=== PATIENT | female | born 1970 | race Caucasian/White ===

== ENCOUNTER → 2018-10-06 12:01 | Outpatient (CLI) | payer OTHER, SELFPAY ==
--- NOTE | 2018-10-06 12:10 | DI.RAD.S_ITS ---
PROCEDURE: XR LUMBAR SPINE MIN 4V INDICATIONS: Back pain TECHNIQUE: 5 views of the lumbar spine were acquired. COMPARISON: Lumbar spine dated 03/04/14. FINDINGS: Bones: No fracture or focal osseous destruction. Straightening of the normal lordotic curvature. Multilevel degenerative endplate sclerosis and spurring. Diffuse facet arthropathy. Mild L5-S1 disc degeneration and height loss otherwise the remaining disc spaces appear grossly preserved. . Soft tissues: Overlying bowel gas pattern is normal. No suspicious soft tissue calcifications. Oblique images: No pars defects. IMPRESSION: Mild L5-S1 disc degeneration which appears grossly unchanged since prior study. Diffuse facet arthropathy. Dictated by: Lucas New M.D. on 10/06/2018 at 16:37 Approved by: Lucas New M.D. on 10/06/2018 at 16:40
== END ==
PROVIDERS: PCP Family Medicine; Visit Provider Physical Medicine & Rehabilitation
DX: M54.9 Dorsalgia, unspecified (principal); M51.37 Other intervertebral disc degeneration, lumbosacral region; M47.817 Spondylosis without myelopathy or radiculopathy, lumbosacral region; M53.3 Sacrococcygeal disorders, not elsewhere classified
CPT/HCPCS: 72110

== ENCOUNTER → 2018-12-01 17:32 | Outpatient (CLI) | payer OTHER, SELFPAY ==
--- NOTE | 2018-12-01 17:36 | DI.MRI.S_ITS ---
PROCEDURE: MR LUMBAR SPINE WO CON INDICATIONS: Low back, sacrum pain TECHNIQUE: Noncontrast sagittal T1 spin echo and T2 fast echo, sagittal STIR, axial T1 and T2 fast spin echo through the lumbar spine. In cases with scoliosis, additional coronal T2 fast spin echo may be performed. COMPARISON: MR, LUMBAR SPINE W/O CONTRAST, 09/29/2010, 8:56. [facility], CR, XR LUMBAR SPINE MIN 4V, 10/06/2018, 12:19. FINDINGS: Image quality: Excellent. Alignment and Curvature: There is normal bony alignment. Bone Marrow: Reactive endplate change is noted adjacent to the L5-S1 disc. No acute vertebral body compression fractures. Spinal Cord: Conus medullaris terminates at the L1 level. Visualized cord demonstrates normal signal and size. Paraspinous Soft Tissues: No paravertebral masses. L1-L2: Normal appearance. L2-L3: Normal appearance. L3-L4: Normal appearance. L4-L5: Loss of this signal. Mild, diffuse disc bulge. Mild bilateral facet hypertrophy. Mild ligamentum flavum hypertrophy. Moderate narrowing of the central canal. Moderate bilateral neural foraminal narrowing. No neural impingement. There is a focal high intensity zone in the left foraminal annulus compatible with a fissures. L5-S1: Loss of disc signal and slight loss of disc height. Mild, diffuse disc bulge. Mild bilateral facet hypertrophy. Mild narrowing of the central canal. Severe right and moderate left neural foraminal narrowing with compression of the exiting right L5 nerve root. Focal high intensity zone is noted in the annulus compatible with fissures. No sacral fractures identified. Marrow signal of the sacrum is normal. Sacroiliac joints are within normal limits. IMPRESSION: 1. L4-L5 and L5-S1 degenerative disease 2. L4-L5 and L5-S1 facet arthropathy. 3. Moderate L4-L5 central canal narrowing. 4. Severe right and moderate left L5-S1 neural femoral narrowing. Moderate bilateral L4-L5 neural femoral narrowing. 5. Compression of the exiting right L5 nerve root secondary to neural foraminal narrowing. Please correlate with clinical data. 6. L4-L5 and L5-S1 disc annulus fissures. Dictated by: Meena Hobson MD, PhD on 12/02/2018 at 11:37 Approved by: Meena Hobson MD, PhD on 12/02/2018 at 11:41
== END ==
PROVIDERS: PCP Family Medicine; Visit Provider Physical Medicine & Rehabilitation
DX: M47.817 Spondylosis without myelopathy or radiculopathy, lumbosacral region (principal); M51.27 Other intervertebral disc displacement, lumbosacral region; M51.36 Other intervertebral disc degeneration, lumbar region; M48.061 Spinal stenosis, lumbar region without neurogenic claudication; M47.816 Spondylosis without myelopathy or radiculopathy, lumbar region; Q05.7 Lumbar spina bifida without hydrocephalus
CPT/HCPCS: 72148

== ENCOUNTER 2019-01-15 08:02 | Outpatient (CLI) | payer OTHER, SELFPAY ==
[2019-01-15] VITALS (8 sets, daily range): BP systolic 105–135; BP diastolic 55–118; PULSE 64–74; RESP 16–18; TEMP 36.1; O2SAT 96–100
--- NOTE | 2019-01-15 08:05 | DI.RAD.S_ITS ---
PROCEDURE: PAIN SI JOINT INJECTION INDICATIONS: SACRAL SPONDYLOSIS FINDINGS: Fluoroscopic spot filming was performed to verify placement of spinal needles at the right sacroiliac joint level(s), as labeled on the films. Appropriate location(s) of the needle tip(s) was confirmed by injection of iodinated contrast. Dictated by: Lucas New M.D. on 01/15/2019 at 10:37 Approved by: Lucas New M.D. on 01/15/2019 at 10:38
[2019-01-15] MEDS: MIDAZOLAM 5 MG/5 ML VIAL IV (09:56)
[2019-01-15] MEDS: fentaNYL 100 MCG/2 ML INJ 50 MCG IV (09:56)
[2019-01-15] MEDS: BUPIVACAINE 0.5% (PF) VIAL 2 ML INJ (10:08)
[2019-01-15] MEDS: IOPAMIDOL 15 ML VIAL 3 ML INJ (10:08)
[2019-01-15] MEDS: BETAMETHASONE 30 MG/5 ML MDV 12 MG INJ (10:08)
--- NOTE | 2019-01-15 10:10 | PC.NURSE ---
ASSISTING PT OFF TABLE AND TRANSPORTING TO POST PROC AREA IN STABLE CONDITION. PASSING CARE TO ALBERTO Belle RN.
--- NOTE | 2019-01-15 10:15 | P.PCN_ITS ---
Procedures Date/Time Date of procedure: 01/15/19 Time of procedure: 10:15 General Procedure description: PREOP Dx: Sacroiliac joint pain/DJD POST OP DX: Sacroiliac Joint Pain/DJD Procedures: Fluoroscopic guided contrast controlled right sacroiliac joint injection Physician: Seth Rowley D.O. Indications: Cassie is referred by for treatment of right sacroiliac joint DJD Description of procedure Fluoroscopic guided, contrast controlled right sacroiliac joint injection Following review of allergies and review of potential side effects and complications, including, but not necessarily limited to, infection, allergic r eaction, local tissue breakdown, temporary as well as permanent nerve injury, paralysis, stroke and possible , the patient indicated that they understood and agreed to proceed. An informed consent was signed by the patient, witnessed by a nurse, and placed in the patient's chart. Additionally, other treatment options including modalities, medications, and physical therapy were reviewed with the patient. After review of previous anaesthesic history and IV conscious sedation the patient was deemed safe to proceed with todays procedure with IV conscious sedation as ASA class II designation. Safety time-out was performed to confirm patient ID, procedure to be performed and site of procedure. IV sedation was accomplished with a combination of 3mg of Versed and 50mcg of Fentanyl was admi nistered by the RN after DO order, titrated to patient comfort during the course of the procedure while the patient remained responsive to all verbal commands In the prone position following sterile prep and drape of the pelvic region, the hyper lucency on in the inferior aspect of the sacroiliac joint was identified fluoroscopically the skin was anesthetized be a 25 gauge 1 eventual with approxi mately 2 cc of 1% lidocaine solution. At this point, a 22 gauge 3 in spinal needle was atraumatically introduced and advanced under fluoroscopic guidance into the inferior aspect of the right sacroiliac joint. Following negative aspiration, approximately 0.3 cc of Isovue-300 was injected confirming intra- articular placement without vascular uptake. Radiographic data, including multiple fluoroscopic views of the pelvis, reveals a spinal needle in the sacroiliac joint hyper lucent zone. Subsequent view show flow contrast tear superiorly and inferiorly within the joint capsule without vascular intrathecal uptake. At this point a total of 1 cc or 0 8 of 0.5% Marcaine was combined with 1 cc of 6 mg of betamethasone was injected without incident. The procedure tolerated the procedure well without signs or symptoms of complications prior to transfer to the recovery area continued monitoring without incident. The patient was then transferred to the recovery area with a bur observed for an appropriate time after the injection. The patient reverted a vas score of 7 prior to the procedure and postprocedure vas of 1. Total fluoroscopy time: 22.7 sec Total conscious sedation time: 24 min Postop instructions The patient was provided with a pain like to continue to record the patient's response to the target specific procedure prior to the patient's follow-up visit with the referring physician. Additionally, specific post injection care instructions and a contact number to our office were provided if concerns arise regarding the possible complications associated with procedure are suspected. Seth Rowley D.O. Complications: none
--- NOTE | 2019-01-15 10:25 | PC.NURSE ---
rtr via w/c post procedure, is alert and able to get self from w/c to recliner without assist, assuming care from Kayli parikh. coffee and cookies provided. talkative but appropriate, daughter at bs.
--- NOTE | 2019-01-15 10:56 | PC.NURSE ---
pt requesting pain medications, dr ayala aware.
--- NOTE | 2019-01-15 13:07 | PC.NURSE ---
1013 rtr via w/c post procedure, is alert awake, talkative, able to get self from w/c to recliner, resume care from Kayli parikh. coffee and cookies provided.
== END 2019-01-15 10:56 | disposition home or self-care (01) ==
LOC: RAD 08:04
PROVIDERS: PCP Family Medicine; Visit Provider Physical Medicine & Rehabilitation
DX: M53.3 Sacrococcygeal disorders, not elsewhere classified (principal); M47.898 Other spondylosis, sacral and sacrococcygeal region
CPT/HCPCS: 27096; 99152; J0702; J2250; J3010

== ENCOUNTER → 2019-10-31 10:54 | Outpatient (CLI) | payer OTHER, SELFPAY ==
[2019-11-01 10:23] LABS: COVID19 Sendout Not Detected (Not Detect)
== END ==
PROVIDERS: PCP Family Medicine; Visit Provider Physician Assistant
DX: Z01.812 Encounter for preprocedural laboratory examination (principal)
CPT/HCPCS: 87635

== ENCOUNTER 2019-11-03 08:14 | Outpatient (CLI) | payer OTHER, SELFPAY ==
[2019-11-03] VITALS (11 sets, daily range): BP systolic 98–130; BP diastolic 68–85; PULSE 60–71; RESP 15–18; TEMP 36.2; O2SAT 99–100
--- NOTE | 2019-11-03 08:17 | DI.RAD.S_ITS ---
PROCEDURE: PAIN L/S TRANSFORAMINAL INJECT INDICATIONS: SPINAL STENOSIS FINDINGS: Fluoroscopic spot filming was performed to verify placement of spinal needles at the L5-S1 level(s), as labeled on the films. Appropriate location(s) of the needle tip(s) was confirmed by injection of iodinated contrast. Dictated by: Lucas New M.D. on 11/04/2019 at 8:46 Approved by: Lucas New M.D. on 11/04/2019 at 8:46
[2019-11-03] MEDS: MIDAZOLAM 5 MG/5 ML VIAL IV (09:46)
[2019-11-03] MEDS: fentaNYL 100 MCG/2 ML INJ 50 MCG IV (09:51)
[2019-11-03] MEDS: BETAMETHASONE 30 MG/5 ML MDV 6 MG INJ (09:54)
[2019-11-03] MEDS: IOPAMIDOL 15 ML VIAL 3 ML INJ (09:54)
[2019-11-03] MEDS: BUPIVACAINE 0.25% (PF) VIAL 2 ML INJ (09:54)
[2019-11-03] MEDS: DEXAMETHASONE 10 MG/ML VIAL 20 MG INJ (09:55)
--- NOTE | 2019-11-03 10:06 | PM.PROC.1 ---
Procedures Date/Time Date of procedure: 11/03/19 Time of procedure: 10:06 General Procedure description: PREOP DIAGNOSIS 1. FORMAINAL STENOSIS WITH LE SYMPTOMS, POST OP DIAGNOSIS 1. FORMAINAL STENOSIS WITH LE SYMPTOMS, PROCEDURES 1.FLUOROSCOPICALLY GUIDED CONTRAST CONTROLLED TRANSFORAMINAL EPIDURAL STEROID INJECTION - RIGHT L5/S1 TFESI PHYSICIAN: Seth Rowley DO INDICATIONS: Cassie is referred for treatment of lumbar radiculopathy with right LE Symptoms FINDINGS Foraminal Nerve Root Compression secondary to disc disease and facet hypertrophy DESCRIPTION OF PROCEDURE Following review of allergy and review of potential side effects and complications, including, but not necessarily limited to, infection, allergic reaction, local tissue breakdown, stroke, temporary or permanent nerve injury, paralysis, and possible , the patient indicated that the patient understood and agreed to proceed. An informed consent document was signed by the patient, witnessed by a nurse, and placed in the patient's chart. Additionally, other treatment options including medications, modalities, and physical therapy were reviewed with the patient. After review of previous anaesthesic history and IV conscious sedation the patient was deemed safe to proceed with todays procedure with IV conscious sedation as ASA class II designation. Safety time-out was performed to confirm patient ID, procedure to be performed and site of procedure. IV sedation was accomplished with a combination of 2mg of Versed and 50mcg of Fentanyl was administered by the RN after DO order, titrated to patient comfort during the course of the procedure while the patient remained responsive to all verbal commands In the prone position following sterile prep and drape of the lumbar region, the right L5/S1 posterior neuroforamen was identified fluoroscopically. The skin was anesthetized via a 25-gauge 1.5-inch needle with 1% lidocaine solution. At this point, a 25-gauge 3.5-inch spinal needle was atraumatically introduced and advanced under fluoroscopic guidance through the posterior right L5/S1 neuroforamen to approximately the anterior aspect of the canal. Depth was confirmed on lateral view. Following negative aspiration, injection of approximately 1.5 cc of Isovue 200 under live fluoroscopy in the AP view confirmed excellent flow along the nerve root, into the epidural space without vascular or intrathecal uptake observed Radiological data, including multiple fluoroscopic views of the lumbosacral spine, reveal a spinal needle at the right L5/S1 posterior neuroforamen. Subsequent views show flow of contrast material flowing superiorly and inferiorly along the nerve root confirming epidural flow. Subsequently, a test dose of 1.5cc of 1% lidocaine solution was administered and patient was observed for two minutes for signs or symptoms of complications, including abdominal pain, shortness of breath, bilateral upper or lower extremity weakness, nausea and vomiting, prior to steroid injection. At this point, a total of 3cc or 20mg of dexamethasone and 6mg betamethasone was injected without incident. The procedure tolerated the procedure well without signs or symptoms of complications prior to transfer to the recovery area continued monitoring without incident. The patient was then transferred to the recovery area where they were observed for an appropriate time after the injection. The patient reported a VAS score of 7 prior to the procedure and a post-procedure VAS of 0. Total Fluoroscopy Time: 9seconds Total Conscious Sedation Time: 24min POST OP INSTRUCTIONS The patient was provided a Pain Log to continue to record their response to the target-specific procedure prior to follow-up visit with their referring physician. Additionally, specific post-injection care instructions and a contact number to our office were provided if concerns arise regarding possible complications associated with the procedure are suspected. eSth Rowley DO Complications: none
--- NOTE | 2019-11-03 10:26 | PC.NURSE ---
pt arrived to pre proc room via wc. slight numbness noted in right leg but able to tranfer from wc to chair with only SBA. Monitoring resumed by this RN
== END 2019-11-03 11:00 | disposition home or self-care (01) ==
LOC: RAD 08:16
PROVIDERS: Referring Provider Physical Medicine & Rehabilitation; Visit Provider Physical Medicine & Rehabilitation
DX: M48.07 Spinal stenosis, lumbosacral region (principal); M51.17 Intervertebral disc disorders with radiculopathy, lumbosacral region
CPT/HCPCS: 64483; 99152; J0702; J1100; J2250; J3010

== ENCOUNTER → 2020-01-04 14:36 | Outpatient (CLI) | payer OTHER, SELFPAY ==
[2020-01-05 10:12] LABS: COVID19 Sendout Not Detected (Not Detect)
== END ==
PROVIDERS: Visit Provider Physician Assistant
DX: Z11.59 Encounter for screening for other viral diseases (principal)
CPT/HCPCS: 87635

== ENCOUNTER 2020-01-07 13:46 | Outpatient (CLI) | payer OTHER, SELFPAY ==
[2020-01-07] VITALS (7 sets, daily range): BP systolic 117–130; BP diastolic 62–82; PULSE 64–73; RESP 16–21; O2SAT 99–100
--- NOTE | 2020-01-07 13:50 | DI.RAD.S_ITS ---
PROCEDURE: PAIN L/S FACET INJ/BLK 1ST REA COMPARISON: , XA, PAIN L/S TRANSFORAMINAL INJECT, 11/03/2019, 8:50. INDICATIONS: SPONDYLOSIS FINDINGS: 2 needle tips have been placed at the facet joints on the right at L4-L5 and L5-S1, bilaterally. IMPRESSION: Successful bilateral needle tip localization for facet joint injections at the 2 lowest levels of the LS spine, 4 total procedures. Dictated by: Eduardo Youngblood M.D. on 01/07/2020 at 15:59 Approved by: Eduardo Youngblood M.D. on 01/07/2020 at 16:01
[2020-01-07] MEDS: MIDAZOLAM 5 MG/5 ML VIAL IV (14:22)
[2020-01-07] MEDS: fentaNYL 100 MCG/2 ML INJ 50 MCG IV (14:22)
[2020-01-07] MEDS: BETAMETHASONE 30 MG/5 ML MDV 12 MG INJ (14:28)
[2020-01-07] MEDS: IOPAMIDOL 15 ML VIAL 3 ML INJ (14:28)
[2020-01-07] MEDS: BUPIVACAINE 0.5% (PF) VIAL 5 ML INJ (14:28)
[2020-01-07] MEDS: LIDOCAINE 1% 20 ML 10 ML INJ (14:29)
--- NOTE | 2020-01-07 14:43 | P.PCN_ITS ---
Date/Time/Diagnoses Date of procedure: 01/07/20 Time of procedure: 14:43 Pre-procedure diagnosis: 1. FACET ARTHROPATHY 2. AXIAL LBP 3. MULTILEVEL DDD Post-procedure diagnosis: same Procedure Notes Procedure: 1. FLUOROSCOPICALLY GUIDED CONTRAST CONTROLLED FACET JOINT INJECTIONS BILATERAL L4/5, L5/S1 Indications: Cassie is referred by Dr. Haddad for treatment of Axial LBP Physician: Seth Rowley Total Fluoroscopy time (seconds): 17 Total sedation minutes: 13 Complications: none Procedure in detail & Post-procedure care: FINDINGS Multilevel Facet Arthropathy with Clinically significant axial LBP DESCRIPTION OF PROCEDURE Fluoroscopically guided, contrast-controlled bilateral L4/5, L5/S1 facet joint injections. Following review of allergy and review of potential side effects and complications, including, but not necessarily limited to, infection, allergic reaction, local tissue breakdown, stroke, temporary or permanent nerve injury, paralysis, and possible , the patient indicated that the patient understood and agreed to proceed. An informed consent document was signed by the patient, witnessed by a nurse, and placed in the patient's chart. Additionally, other treatment options including medications, modalities, and physical therapy were reviewed with the patient. After review of previous anaesthesic history and IV conscious sedation the patient was deemed safe to proceed with today?s procedure with IV conscious sedation as ASA class II designation. Safety time-out was performed to confirm patient ID, procedure to be performed and site of procedure. IV sedation was accomplished with a combination of 2mg of Versed and 50mcg of Fentanyl was administered by the RN after DO order, titrated to patient comfort during the course of the procedure while the patient remained responsive to all verbal commands In the prone position, following sterile prep and drape of the lumbar region, the posterior aspect of the L4/5, L5/S1 facet joints were identified fluoroscopically. The skin was anesthetized via a 25-gauge 1.5inch needle with 1% lidocaine solution into the corresponding facet joints. At this point, a 22- gauge 3.5-inch spinal needle was atraumatically introduced and advanced under fluoroscopic guidance into the corresponding facet joints. Following negative aspiration, injections of approximately 0.2cc of Isovue 200 confirmed in terarticular placement without vascular uptake. The identical procedure was then performed at the L4/5, L5/S1 facet joints on the left. Radiological data, including multiple fluoroscopic views of the lumbosacral spine, reveal a spinal needle at the L4/5, L5/S1 facet joints bilaterally. Subsequent views show flow of contrast material both superiorly and inferiorly within the joint space without vascular or intrathecal uptake. At this point, a total of 0.5cc including a mixture of 0.25cc Marcaine and 0.25cc betamethasone was injected without complication into each of the corresponding facet joints. The patient tolerated the procedure well without signs or symptoms of complications prior to transfer to the recovery area continued monitoring without incident. The patient was then transferred to the recovery area where they were observed for an appropriate period of time after the injection. The patient reported a VAS score of 7 prior to the procedure and a post- procedure VAS of 0. POST OP INSTRUCTIONS The patient was provided a Pain Log to continue to record their response to the target-specific procedure prior to follow-up visit with their referring physician. Additionally, specific post-injection care instructions and a contact number to our office were provided if concerns arise regarding possible complications associated with the procedure are suspected.
== END 2020-01-07 15:00 | disposition home or self-care (01) ==
LOC: RAD 13:50
PROVIDERS: Referring Provider Physical Medicine & Rehabilitation; Visit Provider Physical Medicine & Rehabilitation
DX: M47.816 Spondylosis without myelopathy or radiculopathy, lumbar region (principal); M47.817 Spondylosis without myelopathy or radiculopathy, lumbosacral region; M54.5 Low back pain; M51.36 Other intervertebral disc degeneration, lumbar region; M51.37 Other intervertebral disc degeneration, lumbosacral region
CPT/HCPCS: 64493; 64494; 99152; J0702; J2250; J3010

== ENCOUNTER → 2020-03-28 14:49 | Outpatient (CLI) | payer OTHER, SELFPAY ==
--- NOTE | 2020-03-28 14:52 | DI.RAD.S_ITS ---
PROCEDURE: XR LUMBAR SPINE MIN 4V INDICATIONS: update imaging TECHNIQUE: 5 views of the lumbar spine were acquired. COMPARISON: [facility], , XR LUMBAR SPINE MIN 4V, 10/06/2018, 12:19. FINDINGS: Bones: 5 nonrib-bearing vertebrae are present. There is normal bony alignment. No vertebral body compression fractures. No suspicious bony lesions. Soft tissues: Overlying bowel gas pattern is normal. No suspicious soft tissue calcifications. Oblique images: No pars defects. IMPRESSION: Mild degenerative disc height reduction at the thoracolumbar junction. No compression fracture or subluxation found. Facet osteoarthritis appears mild at L3-4, and mild to moderate at L4-5 and L5-S1. Facet osteoarthritis appears to represent the dominant abnormality of the low lumbosacral spine. This appears to have slightly worsened from the comparison study in October of 2018. Dictated by: Eduardo Youngblood M.D. on 03/28/2020 at 16:10 Approved by: Eduardo Youngblood M.D. on 03/28/2020 at 16:11
== END ==
PROVIDERS: Referring Provider Physical Medicine & Rehabilitation; Visit Provider Physical Medicine & Rehabilitation
DX: M47.816 Spondylosis without myelopathy or radiculopathy, lumbar region (principal); M48.062 Spinal stenosis, lumbar region with neurogenic claudication
CPT/HCPCS: 72110

== ENCOUNTER → 2020-04-18 11:24 | Outpatient (CLI) | payer OTHER, SELFPAY ==
[2020-04-18 12:45] LABS: COVID19 -Nasal RAPID Negative (Negative)
== END ==
PROVIDERS: Visit Provider Physical Medicine & Rehabilitation
DX: Z01.812 Encounter for preprocedural laboratory examination (principal); Z20.828 Contact with and (suspected) exposure to other viral communicable diseases
CPT/HCPCS: 87635; C9803

== ENCOUNTER 2020-04-19 14:04 | Outpatient (CLI) | payer OTHER, SELFPAY ==
--- NOTE | 2020-04-19 14:05 | DI.RAD.S_ITS ---
PROCEDURE: PAIN L/S FACET INJ/BLK 1ST REA COMPARISON: [facility], , PAIN L/S FACET INJ/BLK 1ST REA, 01/07/2020, 14:28. INDICATIONS: SPONDYLOSIS FINDINGS: Fluoroscopic spot filming was performed to verify placement of spinal needles at the L4, L5, S1 level(s), as labeled on the films. Appropriate location(s) of the needle tip(s) was confirmed by injection of iodinated contrast. Dictated by: Lucas New M.D. on 04/19/2020 at 15:46 Approved by: Lucas New M.D. on 04/19/2020 at 15:46
[2020-04-19 15:05] VITALS: BP 122/74; PULSE 63; RESP 22; O2SAT 100
[2020-04-19] MEDS: BUPIVACAINE 0.5% (PF) VIAL 5 ML INJ (15:07)
[2020-04-19] MEDS: LIDOCAINE 1% 20 ML 10 ML INJ (15:07)
[2020-04-19] MEDS: IOPAMIDOL 15 ML VIAL 3 ML INJ (15:08)
[2020-04-19 15:10] VITALS: BP 119/76; PULSE 66; RESP 18; O2SAT 100
[2020-04-19 15:15] VITALS: BP 120/74; PULSE 67; RESP 21; O2SAT 99
[2020-04-19 15:24] VITALS: BP 124/79; PULSE 68; RESP 17; O2SAT 100
--- NOTE | 2020-04-19 15:35 | PC.NURSE ---
When ambulating to wheelchair, pt noted some muscular pain in left leg. Described it as not being neuro pain at all but slightly using right leg more with ambulation. Instructed pt to evaluate overnight and if any neuro issue presents, to follow up with clinic and that also clinic staff would be calling her for a follow up tomorrow. Pt ambulated independently to car for discharge., slow steady gait noted.
--- NOTE | 2020-05-04 18:29 | P.PCN_ITS ---
Date/Time/Diagnoses Date of procedure: 04/19/20 Time of procedure: 14:56 Pre-procedure diagnosis: 1. FACET ARTHROPATHY Post-procedure diagnosis: same Procedure Notes Procedure: 1. BILATERAL- L4, L5 and S1 DIAGNOSTIC MB BLOCKS with LA Anesthetic Indications: Cassie is referred for treatment of Bilateral Axial LBP. Physician: Seth Rowley Total Fluoroscopy time (seconds): 12 Total sedation minutes: 0 Complications: none Procedure in detail & Post-procedure care: DESCRIPTION OF PROCEDURE Fluoroscopically guided, contrast-controlled bilateral L4, L5 and S1 medial branch blocks with 0.5cc of 0.5% Marcaine. Following review of allergy and review of potential side effects and complications, including, but not necessarily limited to, infection, allergic reaction, local tissue breakdown, nerve injury, paralysis, stroke and possible , the patient indicated that the patient understood and agreed to proceed. An informed consent document was signed by the patient, witnessed by a nurse, and placed in the patient's chart. After review of previous anaesthesic history and IV conscious sedation the patient was deemed safe to proceed with today's procedure with IV conscious sedation as ASA class II designation. Safety time-out was performed to confirm patient ID, procedure to be performed and site of procedure. IV sedation was deemed unnecessary and thus not administered by the RN after DO order, titrated to patient comfort during the course of the procedure while the patient remained responsive to all verbal commands In the prone position, following sterile prep and drape of the lumbar region, the right L4, L5 and S1 anatomical location of the medial branch of the dorsal ramus was identified fluoroscopically. Subsequently an anesthetic skin wheal using 1% lidocaine solution was initiated at each of the anatomical spots. Subsequently then a 22-gauge 3.5-inch spinal needle was atraumatically introduced and advanced under fluoroscopic guidance at each of the corresponding sites at the right L4, L5 and S1 MB. After negative aspiration, 0.2cc of Isovue 200 was injected, confirming placement without vascular or intrathecal uptake. Subsequently then 0.5cc of 0.5% Marcaine solution was injected at each of the corresponding sites at the right L4, L5 and S1 medial branch locations. The identical procedure was replicated on the left. The patient tolerated the procedure well without signs or symptoms of complications prior to transfer to the recovery area continued monitoring without incident. Post-procedure, the patient was monitored initiating provocative activities to measure the amount of relief from block of the facetogenic pain. The patient reported a VAS of 7 prior to the procedure and a post-procedure VAS of 1. It has been a pleasure to assist in the diagnostic and therapeutic care of your patient. POST OP INSTRUCTIONS The patient was provided with a Pain Log to complete over the next several hours and subsequent days prior to the patient's follow up with the ordering physician. If the patient has bearing ring assembler relief to the solution applied, then they may be a candidate for medial branch rhizotomy. The patient is aware, was provided, once again, with a Pain Log and will follow up with the referring physician for review and clinical correlation
== END 2020-04-19 15:27 | disposition home or self-care (01) ==
LOC: RAD 14:05
PROVIDERS: Referring Provider Physical Medicine & Rehabilitation; Visit Provider Physical Medicine & Rehabilitation
DX: M47.816 Spondylosis without myelopathy or radiculopathy, lumbar region (principal); M47.817 Spondylosis without myelopathy or radiculopathy, lumbosacral region
CPT/HCPCS: 64493; 64494; J2250; J3010

== ENCOUNTER → 2020-06-07 12:29 | Outpatient (CLI) | payer OTHER, SELFPAY ==
[2020-06-07 16:36] LABS: COVID19 -Nasal RAPID Negative (Negative)
== END ==
PROVIDERS: Visit Provider Physical Medicine & Rehabilitation
DX: Z20.822 Contact with and (suspected) exposure to COVID-19 (principal)
CPT/HCPCS: 87635; C9803

== ENCOUNTER 2020-06-09 07:24 | Outpatient (CLI) | payer OTHER, SELFPAY ==
[2020-06-09] VITALS (14 sets, daily range): BP systolic 106–118; BP diastolic 55–77; PULSE 13–92; RESP 14–22; TEMP 36.7; O2SAT 95–100
--- NOTE | 2020-06-09 07:28 | DI.RAD.S_ITS ---
PROCEDURE: PAIN L/S MED/LAT N RFA BILAT INDICATIONS: SPONDYLOSIS COMPARISON: [facility], XA, PAIN L/S FACET INJ/BLK 1ST REA, 04/19/2020, 15:06. FINDINGS: Fluoroscopic spot filming was performed to verify placement of spinal needles at the L4, L5, and S1 levels on both sides, as labeled on the films. IMPRESSION: Intraprocedural examination within normal limits. Dictated by: Drew Rivera M.D. on 06/09/2020 at 8:36 Approved by: Drew Rivera M.D. on 06/09/2020 at 8:36
[2020-06-09] MEDS: fentaNYL 100 MCG/2 ML INJ 50 MCG IV (08:25)
[2020-06-09] MEDS: BUPIVACAINE 0.5% (PF) VIAL 5 ML INJ (08:32)
[2020-06-09] MEDS: LIDOCAINE 1% 20 ML INJ (08:32)
[2020-06-09] MEDS: MIDAZOLAM 5 MG/5 ML VIAL IV (08:48)
--- NOTE | 2020-06-09 09:06 | P.PCN_ITS ---
Date/Time/Diagnoses Date of procedure: 06/09/20 Time of procedure: 09:06 Pre-procedure diagnosis: 1. RECALCITRANT FACET ARTHROPATHY Post-procedure diagnosis: same Procedure Notes Procedure: 1. BILATERAL L4 AND L5 MEDIAL BRANCH RADIOFREQUENCY NEUROTOMY AND S1 DORSAL RAMUS BRANCH RADIOFREQUENCY NEUROTOMY Indications: Cassie is referred for treatment of facet arthropathy. Physician: Seth Rowley Total Fluoroscopy time (seconds): 20 Total sedation minutes: 34 Complications: none Procedure in detail & Post-procedure care: DESCRIPTION OF PROCEDURE Bilateral L4 and L5 medial branch radiofrequency neurotomy and bilateral S1 dorsal ramus radiofrequency neurotomy under fluoroscopy with conscious sedation. The patient is well known to this clinic having undergone previous facet injections with good but temporary relief. The patient has experienced appropriate, concordant relief with previous facet and median branch blocks but the patient's pain has been recalcitrant to further conservative measures. Therefore, based upon the patient's relief and persistent symptoms, the patient is considered an appropriate candidate for facet rhizotomy. All of the patient's questions regarding the risks versus benefits of the procedure, including, but not limited to, bleeding, infection, temporary as well as lasting nerve injury, paralysis, stroke, and , as well treatment alternatives were answered to satisfaction. After obtaining informed consent, denial of pertinent drug allergies, as well as being made aware of the potential risks of bleeding, infection, spinal cord trauma, paralysis, temporary and permanent nerve damage, seizure, stroke, and possible , the patient was brought to the fluoroscopy suite and positioned prone on the fluoroscopy table. The lumbar region was prepped with Betadine and covered with a fenestrated drape in the usual sterile fashion. Appropriate monitors applied including pulse oximeter, pulse, and blood pressure for regular monitoring throughout the pro cedure. After review of previous anaesthesic history and IV conscious sedation the patient was deemed safe to proceed with today's procedure with IV conscious sedation as ASA class II designation. Safety time-out was performed to confirm patient ID, procedure to be performed and site of procedure. IV sedation was accomplished with a combination of 4mg of Versed and 50mcg of Fentanyl administered by the RN after DO order, titrated to patient comfort during the course of the procedure while the patient remained responsive to all verbal commands. After local infiltration using 1% lidocaine, under fluoroscopic guidance, a 10- cm RF insulated needle with a 10-mm active tip was positioned parallel to the junction of the right sacral ala and the superior articulating process where the S1 dorsal ramus resides. Needle placement was confirmed with motor stimulation of .5v on the right which produced local stimulation without radicular component. The stimulation was then increased to 2v with, once again, only local multifidus stimulation without radicular component. The needle was then removed and the identical procedure was performed along the length of the right L5 medial branch with motor stimulation at .7v on the right. The identical procedure was once again performed along the length of the right L4 medial branch with motor stimulation of .5v on the right. The medial branches were then anesthetised with 0.5% Marcaine. This was then followed by two discreet lesions performed at 80 degrees Celsius for 90 seconds each. The identical procedure was repeated on the left. The patient tolerated the procedure well without signs or symptoms of complications prior to transfer to the recovery area continued monitoring without incident. The patient was then transferred to the recovery area where they were observed for an appropriate period of time after the injection. The patient reported a VAS score of 9 prior to the procedure and a post-procedure VAS of 0. POST OP INSTRUCTIONS The patient was provided a Pain Log to continue to record the patient's response to the target-specific procedure prior to the patient's follow-up visit with the referring physician. Additionally, specific post-injection care instructions and a contact number to our office were provided if concerns arise regarding possible complications associated with the procedure are suspected.
== END 2020-06-09 09:26 | disposition home or self-care (01) ==
LOC: RAD 07:27
PROVIDERS: Referring Provider Physical Medicine & Rehabilitation; Visit Provider Physical Medicine & Rehabilitation
DX: M47.816 Spondylosis without myelopathy or radiculopathy, lumbar region (principal); M47.817 Spondylosis without myelopathy or radiculopathy, lumbosacral region
CPT/HCPCS: 64635; 64636; 99152; 99153; J2250; J3010

== ENCOUNTER → 2020-08-11 17:39 | Outpatient (CLI) | payer OTHER, SELFPAY ==
--- NOTE | 2020-08-11 17:41 | DI.MRI.S_ITS ---
PROCEDURE: MR LUMBAR SPINE WO CON INDICATIONS: Lumbar radiculopathy TECHNIQUE: Noncontrast sagittal T1 spin echo and T2 fast echo, sagittal STIR, axial T1 and T2 fast spin echo through the lumbar spine. In cases with scoliosis, additional coronal T2 fast spin echo may be performed. COMPARISON: [facility], CR, XR LUMBAR SPINE MIN 4V, 10/06/2018, 12:19. [facility], MR, MR LUMBAR SPINE WO CON, 12/01/2018, 17:43. FINDINGS: Image quality: Excellent. Alignment and Curvature: 5 lumbar type vertebral bodies are present by plain. Alignment is normal. Bone Marrow: Marrow is of normal overall signal. No acute vertebral body compression fractures. There is moderate reactive signal within endplates adjacent to the L5-S1 intervertebral disc. Mild reactive signal within the endplates adjacent to the L4-L5 intervertebral disc. Spinal Cord: Conus medullaris terminates at the lower L1 level. Visualized cord demonstrates normal signal and size. Paraspinous Soft Tissues: No paravertebral masses. T12-L1: Mild disc height loss and desiccation. Mild diffuse disc bulge. Mild facet and ligamentum flavum hypertrophy. Minimal canal stenosis. No foraminal stenosis. No significant change. L1-L2: Mild facet and ligamentum flavum hypertrophy. Mild epidural lipomatosis. No significant canal, or foraminal stenosis. No significant change. L2-L3: Mild facet and ligamentum flavum hypertrophy. Mild epidural lipomatosis. Minimal canal stenosis. Mild bilateral foraminal stenosis. No significant change. L3-L4: Mild facet and ligamentum flavum hypertrophy. Mild epidural lipomatosis. Mild canal stenosis. Mild bilateral foraminal stenosis. No significant change. L4-L5: Mild disc desiccation and diffuse disc bulge. Small superimposed left far lateral protrusion and annular tear. Mild facet and ligamentum flavum hypertrophy. Mild epidural lipomatosis. Moderate canal stenosis. Moderate bilateral foraminal stenosis. No significant change. L5-S1: Moderate disc height loss and desiccation. Moderate diffuse disc bulge. Mild facet and ligamentum flavum hypertrophy. Mild canal stenosis. Moderate left and severe right foraminal stenosis associated with right L5 nerve root compression. No significant change. IMPRESSION: 1. Multilevel degenerative disc and facet disease, as well as ligamentum flavum hypertrophy and epidural lipomatosis. 2. Multilevel canal stenoses, worst at L4-L5, where there is moderate canal stenosis. 3. Multilevel foraminal stenoses, worst on the right at L5-S1 where there is associated intraforaminal nerve root compression. Recommend correlation with clinical symptoms to ascertain relevance of this finding. Dictated by: Saurav Montilla M.D. on 08/12/2020 at 8:26 Approved by: Saurav Montilla M.D. on 08/12/2020 at 8:30
== END ==
PROVIDERS: Referring Provider Physical Medicine & Rehabilitation; Visit Provider Physical Medicine & Rehabilitation
DX: M51.27 Other intervertebral disc displacement, lumbosacral region (principal); M51.36 Other intervertebral disc degeneration, lumbar region; M48.061 Spinal stenosis, lumbar region without neurogenic claudication
CPT/HCPCS: 72148

== ENCOUNTER → 2020-09-20 12:56 | Outpatient (CLI) | payer OTHER, SELFPAY ==
[2020-09-20 14:34] LABS: COVID19 -Nasal RAPID Negative (Negative)
== END ==
PROVIDERS: Referring Provider Physical Medicine & Rehabilitation; Visit Provider Physical Medicine & Rehabilitation
DX: Z20.822 Contact with and (suspected) exposure to COVID-19 (principal)
CPT/HCPCS: 87635; C9803

== ENCOUNTER 2020-09-22 07:58 | Outpatient (CLI) | payer OTHER, SELFPAY ==
[2020-09-22] VITALS (10 sets, daily range): BP systolic 125–143; BP diastolic 70–84; PULSE 69–76; RESP 15–31; TEMP 36.1–36.4; O2SAT 98–100
--- NOTE | 2020-09-22 07:59 | DI.RAD.S_ITS ---
PROCEDURE: PAIN L INTERLAMINAR/CAUDAL INJ INDICATIONS: Right L5-S1 translaminar ADDISON COMPARISON: None. FINDINGS: Fluoroscopic spot filming was performed to verify placement of spinal needles at the L5-S1 level(s), as labeled on the films. Appropriate location(s) of the needle tip(s) was confirmed by injection of iodinated contrast. Dictated by: Lucas New M.D. on 09/22/2020 at 10:36 Approved by: Lucas New M.D. on 09/22/2020 at 10:36
[2020-09-22] MEDS: fentaNYL 100 MCG/2 ML INJ 50 MCG IV (08:59)
[2020-09-22] MEDS: MIDAZOLAM 5 MG/5 ML VIAL IV (08:59)
[2020-09-22] MEDS: IOPAMIDOL 15 ML VIAL 3 ML INJ (09:03)
[2020-09-22] MEDS: BUPIVACAINE 0.25% (PF) VIAL 2 ML INJ (09:03)
[2020-09-22] MEDS: methylPREDNISolone acetate 80 MG/ML VIAL INJ (09:04)
[2020-09-22] MEDS: DEXAMETHASONE 10 MG/ML VIAL 20 MG INJ (09:04)
--- NOTE | 2020-09-22 09:11 | PM.PROC.IR.1 ---
Date/Time/Diagnoses Date of procedure: 09/22/20 Time of procedure: 09:11 Pre-procedure diagnosis: 1. HNP WITH RADICULAR FEATURES, 2. MULTILEVEL CENTRAL STENOSIS, Post-procedure diagnosis: same Procedure Notes Procedure: 1. FLUOROSCOPICALLY GUIDED CONTRAST CONTROLLED INTERLAMINAR EPIDURAL STEROID INJECTION - L5/S1 Indications: Cassie is referred for treatment of Bilateral Foraminal Stenosis L>R LE symptoms. Physician: Seth Rowley Total Fluoroscopy time (seconds): 5 Total sedation minutes: 10 Complications: none Procedure in detail & Post-procedure care: FINDINGS Multilevel Central Spinal Stenosis with Nerve Root Compression DESCRIPTION OF PROCEDURE Fluoroscopically guided, contrast-controlled L5/S1 translaminar epidural steroid injection. Following review of allergy and review of potential side effects and complications, including, but not necessarily limited to, infection, allergic reaction, local tissue breakdown, temporary as well as permanent nerve injury, paralysis, stroke and possible , the patient indicated that the patient understood and agreed to proceed. An informed consent document was signed by the patient, witnessed by a nurse, and placed in the patient's chart. Additionally, other treatment options including modalities, medications, and physical therapy were reviewed with the patient. After review of previous anaesthesic history and IV conscious sedation the patient was deemed safe to proceed with today?s procedure with IV conscious sedation as ASA class II designation. Safety time-out was performed to confirm patient ID, procedure to be performed and site of procedure. IV sedation was accomplished with a combination of 5mg of Versed and 50mcg of Fentanyl administered by the RN after DO order, titrated to patient comfort during the course of the procedure while the patient remained responsive to all verbal commands. In the prone position, following sterile prep and drape of the lumbar region, the L5/S1 translaminar space was identified fluoroscopically. The skin was anesthetized via a 25-gauge, 1.5-inch needle with 1% lidocaine solution. At this point, a 22-gauge short bevel spinal needle was atraumatically introduced and advanced under fluoroscopic guidance into the region of the L5/S1 translaminar space. Depth was confirmed on lateral view. Radiological data, including multiple fluoroscopic views of the lumbar spine, reveal a spinal needle at the L5/S1 translaminar space. Lateral views then show placement of the needle in the epidural space. Subsequent views show contrast material flowing superiorly and inferiorly in the epidural space. No vascular or intrathecal uptake is observed. At this point, using loss of resistance technique with saline and air, the epidural space was entered. This was confirmed following negative aspiration with injection of approximately 1.5cc of Isovue 200, showing excellent epidural flow without vascular or intrathecal uptake. At this point, 1 cc of 1% lidocaine solution combined with 3cc or 20mg of dexamethasone and 6mg of betamethasone was injected without incident. The patent tolerated the procedure without signs of symptoms of complications prior to transfer to the recovery area for further monitoring. The patient was then transferred to the recovery area where they were observed for an appropriate period of time after the injection. The patient reported a VAS score of 6 prior to the procedure and a post-procedure VAS of 0. POST OP INSTRUCTIONS The patient was provided a Pain Log to continue to record their response to the target-specific procedure prior to follow-up visit with their referring physician. Additionally, specific post-injection care instructions and a contact number to our office were provided if concerns arise regarding possible complications associated with the procedure are suspected.
== END 2020-09-22 09:36 | disposition home or self-care (01) ==
LOC: RAD 07:59
PROVIDERS: Referring Provider Physical Medicine & Rehabilitation; Visit Provider Physical Medicine & Rehabilitation
DX: M51.17 Intervertebral disc disorders with radiculopathy, lumbosacral region (principal); M48.07 Spinal stenosis, lumbosacral region
CPT/HCPCS: 62323; 99152; J1040; J1100; J2250; J3010

== ENCOUNTER → 2022-12-17 14:06 | Outpatient (CLI) | payer OTHER, SELFPAY ==
--- NOTE | 2022-12-17 14:07 | DI.RAD.S_ITS ---
PROCEDURE: XR LUMBAR SPINE MIN 4V INDICATIONS: Progressive axial low back pain TECHNIQUE: 5 views of the lumbar spine were acquired, including bilateral oblique views. COMPARISON: [facility], CR, XR LUMBAR SPINE MIN 4V, 03/28/2020, 14:54. FINDINGS: Bones: 5 nonrib-bearing vertebrae are present. There is normal bony alignment. No vertebral body compression fractures. No suspicious bony lesions. Multilevel disc space narrowing and endplate osteophyte formation, as well as facet hypertrophy. Soft tissues: Overlying bowel gas pattern is normal. No suspicious soft tissue calcifications. IMPRESSION: Multilevel degenerative disc and facet disease. No acute fracture. No osseous lesion. If symptoms and/or clinical suspicion for pathology persist, further assessment with repeat, or advanced imaging (e.g., CT, MRI, or bone scan) may be helpful for further assessment. Dictated by: Saurav Montilla M.D. on 12/17/2022 at 15:15 Approved by: Saurav Montilla M.D. on 12/17/2022 at 15:16
== END ==
PROVIDERS: Referring Provider Physical Medicine & Rehabilitation; Visit Provider Physical Medicine & Rehabilitation
DX: M47.816 Spondylosis without myelopathy or radiculopathy, lumbar region (principal); M48.062 Spinal stenosis, lumbar region with neurogenic claudication; M51.36 Other intervertebral disc degeneration, lumbar region; M51.27 Other intervertebral disc displacement, lumbosacral region
CPT/HCPCS: 72110; 99214